=== PATIENT | female | born 1945 | race Caucasian/White ===

== ENCOUNTER → 2019-08-01 | Outpatient (CLI) | payer OTHER ==
[~2019-08-01] MED LIST: ALENDRONATE SOD40 MG; ASPIR 8181 MG; CHROMIUM400 MCG; HYDROCHLOROTHIA25 M2; LANTUS100 UNIT/M; LOSARTAN POTASS50 MG; LOVASTATIN 20 M20 MG PO; MAGOX 400400 MG; METFORMIN HCL500 MG; NORCO 5-325 TA1 EAC1 PO; ODOR FREE GARL1 EAC1; TENORMIN50 MG; TUMS; VITAMINC500; ZINC LOZENGE25 MG
== END ==
LOC: M.ULTRA 12:35
DX: N18.3 Chronic kidney disease, stage 3 (moderate) (principal); N28.89 Other specified disorders of kidney and ureter